=== PATIENT | female | born 1985 | race Caucasian/White ===

== ENCOUNTER 2017-04-24 17:31 | Emergency (ER) | payer OTHER ==
[~2017-04-24] VITALS: Ht 162.6 cm; Wt 60.3 kg
[~2017-04-24 17:31] MED LIST: BENADRYL50 MG PO; BENTYL10 MG PO; BUSPAR7.5 MG PO; BUSPIRONE HCL10 MG PO; BUTALB-APAP-CA1 EACH PO; CLONAZEPAM0.25 MG PO; CLONAZEPAM0.5 MG PO; COLACE100 MG PO; DEXILANT60 MG PO; DOXYCYCLINE HY100 MG PO; FIORICET,ESG1 TABLET PO; IBUPROFEN800 MG PO; KLONOPIN1 MG PO; LEXAPRO20 MG PO; LO LOESTRIN FE1 EACH PO; LORTAB 5-500 T1 EACH PO; MAXALT10 MG PO; MAXALT5 MG PO; METOPROLOL SUCC50 MG PO; MIRALAX17 GM PO; MIRALAX255 GM PO; MULTIVITAMIN1 EAC2 PO; NAPROSYN500 MG PO; NEXIUM20 MG PO; NORTRIPTYLINE H10 MG PO; OMEPRAZOLE40 M1 PO; PEPCID20 MG PO; PREDNISONE20 MG PO; PRENATAL TABLE1 EAC3 PO; PREVACID15 MG PO; PRILOSEC OTC20 MG PO; PRILOSEC20 MG PO; PRISTIQ50 MG PO; PROZAC10 MG PO; RANITIDINE HCL300 M1 PO; SENNA LAXATIVE25 MG PO; SERTRALINE HCL100 MG PO; THERAGRAN1 TABLET PO; TOPAMAX50 MG PO; TORADOL10 MG PO; TUMS500 MG PO; ULTRAM50 MG PO; VICODIN 5-3001 EACH PO; VOLTAREN25 MG PO; WELLBUTRIN XL300 MG PO; ZANTAC150 MG PO; ZOFRAN4 MG PO; ZOFRAN8 MG PO
[2017-04-24 18:03] LABS: HEMATOCRIT 37.2 % (36.0-46.0); MCH 29.5 PG (29.0-34.0); MCHC 33.6 G/DL (30.0-36.0); MCV 87.7 FL (83-99); MEAN PLAT.VOLUME 9.8 uM^3 (9.5-12.4); PLATELET COUNT 294 K/uL (156-360); RBC DIS.WIDTH-SD 41.1 % (39-53); RED BLOOD COUNT 4.24 M/uL (3.80-5.20); WHITE BLOOD COUNT 7.8 K/uL (4.1-10.2)
[2017-04-24 18:17] LABS: CHLORIDE 105 mEq/L (99-109); SODIUM 140 mEq/L (136-147)
[2017-04-24 18:19] LABS: GLUCOSE 103 mg/dL (70-99)
[2017-04-24 18:20] LABS: ANION GAP 13 MEQ/L (2-14)
[2017-04-24 18:22] LABS: GFR ESTIMATE (CALCULATED) > 59 mL/min/
[2017-04-24 18:23] LABS: UREA NITROGEN (BUN) 14 mg/dL (9-23)
[2017-04-24 18:30] LABS: TROP-I INTERPRETATION NEGATIVE; TROPONIN-I < 0.01 ng/mL (0.0-0.30)
[2017-04-24 20:32] LABS: QUANTITATIVE HCG < 4.0 MIU/ML
[2017-04-24 20:45] VITALS: BP 128/76
== END 2017-04-24 20:47 | disposition home or self-care (01) ==
LOC: EME 17:31
DX: R07.9 Chest pain, unspecified (principal); F41.9 Anxiety disorder, unspecified; F32.9 Major depressive disorder, single episode, unspecified; F17.290 Nicotine dependence, other tobacco product, uncomplicated; F43.10 Post-traumatic stress disorder, unspecified; Z88.1 Allergy status to other antibiotic agents; Z98.51 Tubal ligation status; Z88.5 Allergy status to narcotic agent
CPT/HCPCS: 80048; 84484; 84702; 85027; 93005; 99281; 99284

== ENCOUNTER 2017-08-15 20:11 | Emergency (ER) | payer OTHER ==
[~2017-08-15] VITALS: Ht 162.6 cm; Wt 69.2 kg
[2017-08-15 20:53] LABS: HEMATOCRIT 32.6 % (36.0-46.0); HEMOGLOBIN 10.8 G/DL (11.9-15.5); MCH 28.7 PG (29.0-34.0); MCHC 33.1 G/DL (30.0-36.0); MCV 86.7 FL (83-99); PLATELET COUNT 305 K/uL (156-360); RBC DIS.WIDTH-CV 12.5 % (11.8-14.6); RBC DIS.WIDTH-SD 40.1 % (39-53); RED BLOOD COUNT 3.76 M/uL (3.80-5.20); WHITE BLOOD COUNT 8.8 K/uL (4.1-10.2)
[2017-08-15 21:02] LABS: CHLORIDE 104 mEq/L (99-109); POTASSIUM 3.9 mEq/L (3.7-5.4); SODIUM 134 mEq/L (136-147)
[2017-08-15 21:03] LABS: GLUCOSE 80 mg/dL (70-99)
[2017-08-15 21:07] LABS: CREATININE 0.8 mg/dL (0.6-1.3); GFR ESTIMATE (CALCULATED) > 59 mL/min/
[2017-08-15 21:08] LABS: UREA NITROGEN (BUN) 15 mg/dL (9-23)
[2017-08-15 21:15] LABS: APPEARANCE CLEAR ((CLEAR)); BILIRUBIN NEGATIVE; BLOOD NEGATIVE; COLOR STRAW ((YELLOW)); GLUCOSE (STRIP) NEGATIVE; KETONES NEGATIVE; LEUKOCYTES NEGATIVE; NITRITE NEGATIVE; PROTEIN (STRIP) NEGATIVE; UCUL ADDED? NO; UROBILINOGEN 0.2 MG/DL (0.2-1.0)
[2017-08-15 21:17] LABS: QUANTITATIVE HCG < 4.0 MIU/ML
[2017-08-15 22:14] LABS: ALBUMIN 4.2 g/dL (3.2-4.8)
[2017-08-15 22:17] LABS: TOTAL PROTEIN 7.1 g/dL (6.4-8.3)
[2017-08-15 22:19] LABS: TOTAL BILIRUBIN 0.3 mg/dL (0.0-1.0)
[2017-08-15 22:22] LABS: ALKALINE PHOSPHATASE 48 IU/L (3-129); AST (GOT) 15 IU/L (2-34); DIRECT BILIRUBIN 0.1 mg/dL (0.0-0.3)
[2017-08-15 22:23] LABS: ALT (GPT) 11 IU/L (3-49); LIPASE 32 U/L (1.0-51.0)
[2017-08-15 22:30] LABS: D-DIMER ELISA < 150.00 ng/mLDDU (<230)
[2017-08-15] MEDS ORDERED: MOTRIN600 MG PO (23:39)
[2017-08-15] MEDS ORDERED: ULTRACET1 TABLET PO (23:39)
[2017-08-15] MEDS ORDERED: BENTYL20 MG PO (23:40)
[2017-08-15] MEDS ORDERED: ZOFRAN ODT8 MG PO (23:40)
[2017-08-16 00:20] VITALS: BP 114/71
== END 2017-08-16 00:36 | disposition home or self-care (01) ==
LOC: EME 20:11
PROVIDERS: Physician Assistant
DX: R10.9 Unspecified abdominal pain (principal); R11.0 Nausea; M25.511 Pain in right shoulder; R35.0 Frequency of micturition; R19.7 Diarrhea, unspecified; N20.0 Calculus of kidney; F17.200 Nicotine dependence, unspecified, uncomplicated
CPT/HCPCS: 71046; 74176; 76705; 80048; 80076; 81003; 83690; 84702; 85027; 85379; 99281; 99284; J1885

== ENCOUNTER 2017-10-16 16:30 | Emergency (ER) | payer OTHER ==
[~2017-10-16] VITALS: Ht 162.6 cm; Wt 63.5 kg
[~2017-10-16 16:30] MED LIST changes: +BENTYL20 MG PO; +MOTRIN600 MG PO; +ULTRACET1 TABLET PO; +ZOFRAN ODT8 MG PO
[2017-10-16 17:17] LABS: HEMATOCRIT 31.9 % (36.0-46.0); HEMOGLOBIN 10.6 G/DL (11.9-15.5); MCH 28.6 PG (29.0-34.0); MCHC 33.2 G/DL (30.0-36.0); MCV 86.2 FL (83-99); PLATELET COUNT 300 K/uL (156-360); RBC DIS.WIDTH-CV 14.6 % (11.8-14.6); WHITE BLOOD COUNT 10.9 K/uL (4.1-10.2)
[2017-10-16 17:24] LABS: ALBUMIN 4.2 g/dL (3.2-4.8); CHLORIDE 101 mEq/L (99-109); POTASSIUM 3.7 mEq/L (3.7-5.4); SODIUM 138 mEq/L (136-147)
[2017-10-16 17:26] LABS: GLUCOSE 78 mg/dL (70-99); TOTAL PROTEIN 7.2 g/dL (6.4-8.3)
[2017-10-16 17:28] LABS: TOTAL BILIRUBIN 0.2 mg/dL (0.0-1.0)
[2017-10-16 17:30] LABS: ALKALINE PHOSPHATASE 48 IU/L (3-129); CREATININE 0.8 mg/dL (0.6-1.3); GFR ESTIMATE (CALCULATED) > 59 mL/min/
[2017-10-16 17:31] LABS: UREA NITROGEN (BUN) 14 mg/dL (9-23)
[2017-10-16 17:32] LABS: AST (GOT) 20 IU/L (2-34)
[2017-10-16 17:33] LABS: ALT (GPT) 11 IU/L (3-49)
[2017-10-16 17:33] LABS: APPEARANCE CLEAR ((CLEAR)); BILIRUBIN NEGATIVE; BLOOD NEGATIVE; COLOR YELLOW ((YELLOW)); GLUCOSE (STRIP) NEGATIVE; KETONES NEGATIVE; LEUKOCYTES NEGATIVE; NITRITE NEGATIVE; PROTEIN (STRIP) NEGATIVE; SPECIFIC GRAVITY 1.014 (1.000-1.030); UCUL ADDED? NO; UROBILINOGEN 0.2 MG/DL (0.2-1.0)
[2017-10-16 17:42] LABS: QUANTITATIVE HCG < 4.0 MIU/ML
[2017-10-16 20:00] VITALS: BP 121/81
== END 2017-10-16 20:00 | disposition home or self-care (01) ==
LOC: EME 16:30
DX: R60.0 Localized edema (principal); R19.7 Diarrhea, unspecified; Z98.51 Tubal ligation status; Z72.0 Tobacco use
CPT/HCPCS: 80053; 81003; 84702; 85027; 99281; 99284

== ENCOUNTER 2017-12-13 23:17 | Emergency (ER) | payer OTHER ==
[~2017-12-13] VITALS: Ht 162.6 cm; Wt 68.0 kg
[2017-12-14 00:16] LABS: HEMATOCRIT 36.5 % (36.0-46.0); HEMOGLOBIN 12.7 G/DL (11.9-15.5); MCH 31.4 PG (29.0-34.0); MCHC 34.8 G/DL (30.0-36.0); MCV 90.3 FL (83-99); PLATELET COUNT 254 K/uL (156-360); RBC DIS.WIDTH-CV 14.6 % (11.8-14.6); RBC DIS.WIDTH-SD 48.5 % (39-53); RED BLOOD COUNT 4.04 M/uL (3.80-5.20); WHITE BLOOD COUNT 9.2 K/uL (4.1-10.2)
[2017-12-14 00:28] LABS: CHLORIDE 106 mEq/L (99-109); POTASSIUM 3.4 mEq/L (3.7-5.4); SODIUM 137 mEq/L (136-147)
[2017-12-14 00:29] LABS: GLUCOSE 87 mg/dL (70-99)
[2017-12-14 00:29] LABS: APPEARANCE CLEAR ((CLEAR)); BILIRUBIN NEGATIVE; BLOOD SMALL; COLOR COLORLESS ((YELLOW)); GLUCOSE (STRIP) NEGATIVE; KETONES NEGATIVE; LEUKOCYTES NEGATIVE; NITRITE NEGATIVE; PROTEIN (STRIP) NEGATIVE; SPECIFIC GRAVITY 1.003 (1.000-1.030); UROBILINOGEN 0.2 MG/DL (0.2-1.0)
[2017-12-14 00:33] LABS: BACTERIA RARE /HPF; EPITHELIAL CELLS RARE /HPF; MUCUS NONE SEEN /LPF; RED BLOOD CELLS 0-5 /HPF (0-5); UCUL ADDED? NO; WHITE BLOOD CELLS 0-5 /HPF (0-5)
[2017-12-14 00:33] LABS: CREATININE 0.7 mg/dL (0.6-1.3); GFR ESTIMATE (CALCULATED) > 59 mL/min/; SERUM ETHYL ALCOHOL 213 mg/dL
[2017-12-14 00:34] LABS: UREA NITROGEN (BUN) 11 mg/dL (9-23)
[2017-12-14 00:38] LABS: AMPHETAMINE PRESUMPTIVE POSITIVE (500 ng/mL); BARBITURATES NEGATIVE (200 ng/mL); BENZODIAZEPINES PRESUMPTIVE POSITIVE (150 ng/mL); BUPRENORPHINE NEGATIVE (10 ng/mL); COCAINE NEGATIVE (150 ng/mL); METHADONE NEGATIVE (200 ng/mL); METHAMPHETAMINE NEGATIVE (500 ng/mL); OPIATES (MORPHINE) NEGATIVE (100 ng/mL); OXYCODONE NEGATIVE (100 ng/mL); PHENCYCLIDINE NEGATIVE (25 ng/mL); PROPOXYPHENE NEGATIVE (300 ng/mL); THC CANNABINOIDS NEGATIVE (50 ng/mL); TRICYCLIC ANTIDEPRESSANTS NEGATIVE (300 ng/mL)
[2017-12-14 00:41] LABS: QUANTITATIVE HCG < 4.0 MIU/ML
[2017-12-14 01:28] LABS: BENZODIAZEPINES, URINE SCREEN POSITIVE (200 ng/mL)
[2017-12-14] MEDS ORDERED: B-1100 MG PO (06:58)
[2017-12-14] MEDS ORDERED: LIBRIUM25 MG PO (06:58)
[2017-12-14 07:41] VITALS: BP 94/51
== END 2017-12-14 07:55 | disposition home or self-care (01) ==
LOC: EME 23:17
PROVIDERS: Emergency Medicine
DX: F10.239 Alcohol dependence with withdrawal, unspecified (principal); R10.9 Unspecified abdominal pain; R51 Headache; F33.2 Major depressive disorder, recurrent severe without psychotic features; F90.9 Attention-deficit hyperactivity disorder, unspecified type; F41.9 Anxiety disorder, unspecified; Y90.7 Blood alcohol level of 200-239 mg/100 ml; F17.200 Nicotine dependence, unspecified, uncomplicated
CPT/HCPCS: 80048; 81003; 84702; 84999; 85027; 90839; 99281; 99285; G0480